=== PATIENT | male | born 1990 | race American Indian/Alaskan Native ===

== ENCOUNTER 2020-05-14 15:36 | Emergency (ER) | payer OTHER ==
[2020-05-14 16:35] VITALS: BP 147/89
[2020-05-14] MEDS ORDERED: LIDOCAINE (2%) 20 MG/1 ML VIAL 20 ML MDV INFILTRATI ONE (16:43)
--- NOTE | 2020-05-14 17:19 | Emergency Department Report ---
ED Head Injury/Laceration HPI - HPI Occurred When: Today Mechanism: Direct Blow Location: Facial, Frontal Pain: Mild Tetanus Status: Not up to Date Symptoms: Loss of Consciousness: No, Nausea: No, Blurred Vision: No, Unusual Behavior: No, Headache: No, Swelling: No, Bruising: No, Break in Skin: Yes, Bleeding: No Other History: Question typical color on his work truck and the chain broke causing the change to across his forehead contact with the skin resulting in a laceration. Reports no loss consciousness no headache or dizziness. Pain is dull and throbbing with palpation. Is not recall when his last tetanus shot was obtained ED General PMH - Social History Smoking Status: Never Smoker ED Review of Systems ROS: Stated complaint: HEAD LAC Other details as noted in HPI Comment: All other systems reviewed and negative Head Inj w/lac Physical Exam - Exam General: Vital signs noted. No distress. Alert and acting appropriately. Adult Head Front + Back: 1 - Laceration full-thickness Head: Yes PERRL, No Hemotympanum, No Hematoma/Ecchymosis, No Epistaxis, No Stepoff/Deformity, No Abrasion, No Foreign Body Wound Length (cm): 3 Laceration Location: Facial Chest, Abd, & Ext: Yes Clear Lung Sounds, Yes Regular Heart Rhythm, No Neck Pain, No Chest Injury/Pain, No Heart Murmur, No Abdominal Tenderness, No Back Tenderness, No Extremity Injury Neuroligical (Head Inj W/O Lac: Yes Normal Speech, Yes Normal Gait, No Lethargy, No Disorientation, No Focal Numbness, No Focal Weakness - Laceration /Wound Repair Head Wound Location: face Wound Length (cm): 3 Wound's Depth, Shape: linear, nail-avulsed Irrigated w/ Saline (ccs): 20 Betadine Prep?: Yes Anesthesia: 1% Lidocaine Volume Anesthetic (ccs): 3 Wound Repaired With: sutures Suture Size/Type: 5:0, proline Number of Sutures: 5 Sterile Dressing Applied?: Yes ED Disposition Clinical Impression: Facial laceration, Tetanus toxoid inoculation Disposition: [id number] TO HOME OR SELFCARE Is pt being admited?: No Does the pt Need Aspirin: No Condition: Stable Instructions: Laceration Care, Adult, Sutured Wound Care, Laceration Care, Adult, [id number], VIS, Tetanus, Diphtheria, and Pertussis (Tdap) - [facility] [place] (05/14/2019) Additional Instructions: Please follow-up in 7 days to be evaluated for possible suture removal Referrals: MARTIN LOWRY MD [Staff Physician] - 3-5 Days
[2020-05-14] MEDS ORDERED: TETANUS,DIPHTHERIA TOXOID ADULT 0.5 ML INJ IM ONE (17:30)
[2020-05-14] MEDS ORDERED: TETANUS,DIPH,PERTUSS(ACELL) VACCINE 0.5 ML SYRINGE IM ONE (17:34)
== END 2020-05-14 18:00 | disposition home or self-care (01) ==
LOC: ED 15:36
DX: S01.81XA Laceration without foreign body of other part of head, initial encounter (principal); X58.XXXA Exposure to other specified factors, initial encounter; Y93.89 Activity, other specified; Y92.89 Other specified places as the place of occurrence of the external cause; Y99.8 Other external cause status
CPT/HCPCS: 90471; 90714; 90715